=== PATIENT | male | born 1995 | race Caucasian/White ===

== ENCOUNTER 2017-05-18 12:05 | Emergency (ER) | payer OTHER ==
[~2017-05-18] VITALS: Ht 162.6 cm; Wt 76.7 kg
[2017-05-18 12:34] VITALS: BP 146/84
[2017-05-18 13:40] LABS: BASO % 0 % (0-3); EOS # 0.2 x10^3/uL (0.0-0.7); EOS % 2 % (0-3); HEMATOCRIT 44.4 % (39.0-53.0); HEMOGLOBIN 14.8 g/dL (13.0-17.5); LYMPH # 1.7 x10^3/uL (1.0-4.8); LYMPH % 14 % (24-48); MEAN CORPUSCULAR HEMOGLOBIN 29 pg (25-35); MEAN CORPUSCULAR HGB CONC 33 g/dL (31-37); MEAN CORPUSCULAR VOLUME 87 fL (79-100); MONO # 1.1 x10^3/uL (0.0-1.1); MONO % 9 % (0-9); NEUT # 8.8 x10^3uL (1.8-7.7); NEUT % 75 % (31-73); PLATELET COUNT 244 x10^3/uL (140-400); RED BLOOD COUNT 5.09 x10^6/uL (4.30-5.70); RED CELL DISTRIBUTION WIDTH 13.5 % (11.5-14.5); WHITE BLOOD COUNT 11.8 x10^3/uL (4.0-11.0)
[2017-05-18 13:49] LABS: ALBUMIN 3.9 g/dL (3.4-5.0); ALBUMIN/GLOBULIN RATIO 1.1 (1.0-1.7); CALCIUM 9.4 mg/dL (8.5-10.1); CREATININE 0.9 mg/dL (0.7-1.3); GFR 107.6; POTASSIUM 3.9 mmol/L (3.5-5.1); TOTAL BILIRUBIN 0.8 mg/dL (0.2-1.0); TOTAL PROTEIN 7.5 g/dL (6.4-8.2)
--- NOTE | 2017-05-18 13:49 | RAD ---
Exam performed: X-ray abdomen KUB. Clinical Indication: Rectal pain since Wednesday, no known injury Date of Service: 05/18/17 Comparison: None available Supine radiograph of the abdomen and pelvis reveals no evidence of ileus or obstruction. Definite pathologic calcification or organomegaly is not identified. No foreign body. The visualized osseous structures appear unremarkable. Impression: 1. Negative exam
--- NOTE | 2017-05-18 14:06 | PHYS DOC ---
Past History Past Medical History: No Pertinent History Past Surgical History: No Surgical History Alcohol Use: Occasionally Drug Use: Marijuana Adult General Chief Complaint Chief Complaint: RECTAL BLEED HPI HPI Patient is a 21 year old M who presents with rectal pain. Edwin states that while straining to have a bowel movement approximately 5 days ago he developed rectal pain. Since that time he has had dull intermittent rectal pain that is worse with bowel movements. He continues to have bowel movements daily that are hard and painful to pass but seemed to be of normal volume. He denies blood or melena. He is eating normally without nausea. His pain does not radiate. She has no other associated signs or symptoms. She has no other alleviating or exacerbating factors. Review of Systems Review of Systems Constitutional: Denies fever or chills [] Eyes: Denies change in visual acuity, redness, or eye pain [] HENT: Denies nasal congestion or sore throat [] Respiratory: Denies cough or shortness of breath [] Cardiovascular: No additional information not addressed in HPI [] GI: Negative except history of present illness : Denies dysuria or hematuria [] Musculoskeletal: Denies back pain or joint pain [] Integument: Denies rash or skin lesions [] Neurologic: Denies headache, focal weakness or sensory changes [] Endocrine: Denies polyuria or polydipsia [] Family History Family History Noncontributory Current Medications Current Medications Medications reviewed Allergies Allergies Reviewed Physical Exam Physical Exam Constitutional: Well developed, well nourished, no acute distress, non-toxic appearance. [] HENT: Normocephalic, atraumatic, bilateral external ears normal, oropharynx moist, no oral exudates, nose normal. [] Eyes: PERRLA, EOMI, conjunctiva normal, no discharge. [] Neck: Normal range of motion, no tenderness, supple, no stridor. [] Cardiovascular:Heart rate regular rhythm, no murmur [] Lungs & Thorax: Bilateral breath sounds clear to auscultation [] Abdomen: Bowel sounds normal, soft, no tenderness, no masses, no pulsatile masses. [] Rectal exam revealed no abnormalities Skin: Warm, dry, no erythema, no rash. [] Back: No tenderness, no CVA tenderness. [] Extremities: No tenderness, no cyanosis, no clubbing, ROM intact, no edema. [] Neurologic: Alert and oriented X 3, normal motor function, normal sensory function, no focal deficits noted. [] Psychologic: Affect normal, judgement normal, mood normal. [] Current Patient Data Vital Signs Vital Signs Date Time Temp Pulse Resp B/P (MAP) Pulse Ox O2 Delivery O2 Flow Rate FiO2 05/18/17 12:34 98.7 20 20 98 Room Air Lab Results Laboratory Tests Test 05/18/17 13:26 White Blood Count 11.8 x10^3/uL (4.0-11.0) H Red Blood Count 5.09 x10^6/uL (4.30-5.70) Hemoglobin 14.8 g/dL (13.0-17.5) Hematocrit 44.4 % (39.0-53.0) Mean Corpuscular Volume 87 fL (79-100) Mean Corpuscular Hemoglobin 29 pg (25-35) Mean Corpuscular Hemoglobin Concent 33 g/dL (31-37) Red Cell Distribution Width 13.5 % (11.5-14.5) Platelet Count 244 x10^3/uL (140-400) Neutrophils (%) (Auto) 75 % (31-73) H Lymphocytes (%) (Auto) 14 % (24-48) L Monocytes (%) (Auto) 9 % (0-9) Eosinophils (%) (Auto) 2 % (0-3) Basophils (%) (Auto) 0 % (0-3) Neutrophils # (Auto) 8.8 x10^3uL (1.8-7.7) H Lymphocytes # (Auto) 1.7 x10^3/uL (1.0-4.8) Monocytes # (Auto) 1.1 x10^3/uL (0.0-1.1) Eosinophils # (Auto) 0.2 x10^3/uL (0.0-0.7) Basophils # (Auto) 0.0 x10^3/uL (0.0-0.2) Sodium Level 138 mmol/L (136-145) Potassium Level 3.9 mmol/L (3.5-5.1) Chloride Level 102 mmol/L (98-107) Carbon Dioxide Level 31 mmol/L (21-32) Anion Gap 5 (6-14) L Blood Urea Nitrogen 7 mg/dL (8-26) L Creatinine 0.9 mg/dL (0.7-1.3) Estimated GFR (Cockcroft-Gault) 107.6 BUN/Creatinine Ratio 8 (6-20) Glucose Level 90 mg/dL (70-99) Calcium Level 9.4 mg/dL (8.5-10.1) Total Bilirubin 0.8 mg/dL (0.2-1.0) Aspartate Amino Transferase (AST) 11 U/L (15-37) L Alanine Aminotransferase (ALT) 17 U/L (16-63) Alkaline Phosphatase 83 U/L (46-116) Total Protein 7.5 g/dL (6.4-8.2) Albumin 3.9 g/dL (3.4-5.0) Albumin/Globulin Ratio 1.1 (1.0-1.7) Radiology/Procedures Radiology/Procedures KUB Impressions: No acute disease Course & Med Decision Making Course & Med Decision Making Pertinent Labs and Imaging studies reviewed. (See chart for details) Edwin symptoms are most consistent with constipation Dragon Disclaimer Dragon Disclaimer This chart was dictated in whole or in part using Voice Recognition software in a busy, high-work load, and often noisy Emergency Department environment. It may contain unintended and wholly unrecognized errors or omissions. Departure Departure: Impression: Primary Impression: Rectal pain Additional Impression: Constipation Disposition: 01 HOME, SELF-CARE Condition: STABLE Referrals: RC BARAJAS DO (PCP) Patient Instructions: Constipation, Adult Additional Instructions: Edwin was seen in the emergency department for rectal pain. No emergency medical condition was found on history or physical exam. He did have normal labs and imaging. His symptoms are most consistent with constipation. He was advised to discontinue his pain medication, drink plenty of fluids, and observed a soft diet until his symptoms improve. The soft diet should not be observed longer than 3-5 days, after which if he still has symptoms he should be reevaluated. He was advised to follow-up with his primary care doctor in the next 3-5 days to ensure continuing improvement. He was also advised to return to the emergency room if he develops now worsening symptoms Problem Qualifiers Additional Impression: Constipation Constipation type: unspecified constipation type Qualified Codes: K59.00 - Constipation, unspecified OLGA LAZARO MD May 18, 2017 14:06
[2017-05-18 14:22] LABS: BILIRUBIN,URINE NEG (NEG); CLARITY,URINE CLEAR; COLOR,URINE YELLOW; GLUCOSE,URINE NEG (NEG)
[2017-05-18 14:23] LABS: BACTERIA,URINE 0 /HPF (0-FEW); NITRITE,URINE NEG (NEG); RBC,URINE 0 /HPF (0-2); UROBILINOGEN,URINE 0.2 mg/dL (0.2 mg/dL); WBC,URINE 0 /HPF (0-4)
== END 2017-05-18 14:50 | disposition home or self-care (01) ==
LOC: ER 12:05
DX: K62.89 Other specified diseases of anus and rectum (principal); K59.00 Constipation, unspecified
CPT/HCPCS: 36415; 74000; 80053; 81001; 85025; 99285

== ENCOUNTER 2017-11-23 15:23 | Emergency (ER) | payer OTHER ==
[~2017-11-23] VITALS: Ht 162.6 cm; Wt 74.4 kg
[2017-11-23 15:55] LABS: BASO % 0 % (0-3); EOS % 0 % (0-3); HEMATOCRIT 47.4 % (39.0-53.0); HEMOGLOBIN 16.3 g/dL (13.0-17.5); LYMPH # 1.3 x10^3/uL (1.0-4.8); LYMPH % 11 % (24-48); MEAN CORPUSCULAR HEMOGLOBIN 30 pg (25-35); MEAN CORPUSCULAR HGB CONC 34 g/dL (31-37); MEAN CORPUSCULAR VOLUME 86 fL (79-100); MONO # 0.7 x10^3/uL (0.0-1.1); MONO % 6 % (0-9); NEUT # 9.7 x10^3uL (1.8-7.7); NEUT % 83 % (31-73); PLATELET COUNT 300 x10^3/uL (140-400); RED BLOOD COUNT 5.49 x10^6/uL (4.30-5.70); RED CELL DISTRIBUTION WIDTH 13.8 % (11.5-14.5); WHITE BLOOD COUNT 11.7 x10^3/uL (4.0-11.0)
[2017-11-23 16:07] LABS: ACETAMIN < 2.0 mcg/mL (10-30); ETHANOL < 10 mg/dL (0-10); SALIC 3.4 mg/dL (2.8-20.0)
[2017-11-23 16:08] LABS: ALBUMIN 4.6 g/dL (3.4-5.0); CALCIUM 9.6 mg/dL (8.5-10.1); CREATININE 0.8 mg/dL (0.7-1.3); DIRECT BILIRUBIN 0.1 mg/dL (0.0-0.2); GFR 123.2; POTASSIUM 3.7 mmol/L (3.5-5.1); TOTAL BILIRUBIN 0.4 mg/dL (0.2-1.0); TOTAL PROTEIN 8.1 g/dL (6.4-8.2)
[2017-11-23 17:02] LABS: AMPHETAMINE/METHAMPHETAMINE NEG (NEG); BARBITURATES NEG (NEG); BENZODIAZEPINES NEG (NEG); CANNABINOIDS POS (NEG); COCAINE NEG (NEG); METHADONE NEG (NEG); OPIATES NEG (NEG); PHENCYCLIDINE NEG (NEG)
[2017-11-23 17:11] LABS: BILIRUBIN,URINE NEG (NEG); CLARITY,URINE CLEAR; COLOR,URINE YELLOW; GLUCOSE,URINE NEG (NEG)
[2017-11-23 17:12] LABS: BACTERIA,URINE 0 /HPF (0-FEW); NITRITE,URINE NEG (NEG); SQUAMOUS EPITHELIAL CELL,UR OCC /LPF; UROBILINOGEN,URINE 0.2 mg/dL (0.2 mg/dL); WBC,URINE OCC /HPF (0-4)
--- NOTE | 2017-11-23 17:27 | PHYS DOC ---
Past History Past Medical History: No Pertinent History, Depression Past Surgical History: No Surgical History Alcohol Use: None Drug Use: None Adult General Chief Complaint Chief Complaint: suicidal ideation HPI HPI 21-year-old male patient brought in by his father because of suicidal ideation. Patient states he has had suicidal ideation and attempt or mental hospitalization or seeking medical attention since he was 19 but his suicidal ideation worse for the last 1 week because he feels he is not the person he should to be. Patient states he doesn't have a special plan but thinking about jumping in front of a car or jumping from a bridge or cutting his wrist. Patient states he is hearing voices that telling him to harm himself. Patient denies homicidal ideation. Patient denies pain or having medical problem. Patient states he used to take marijuana but doesn't take any more. Patient admitted to smoke cigarettes. Patient denies using drugs. Review of Systems Review of Systems Constitutional: Denies fever or chills [] Eyes: Denies change in visual acuity, redness, or eye pain [] HENT: Denies nasal congestion or sore throat [] Respiratory: Denies cough or shortness of breath [] Cardiovascular: No additional information not addressed in HPI [] GI: Denies abdominal pain, nausea, vomiting, bloody stools or diarrhea [] : Denies dysuria or hematuria [] Musculoskeletal: Denies back pain or joint pain [] Integument: Denies rash or skin lesions [] Neurologic: Denies headache, focal weakness or sensory changes [] Endocrine: Denies polyuria or polydipsia [] All other systems were reviewed and found to be within normal limits, except as documented in this note. Family History Family History Non-contributory Current Medications Current Medications See Nursing for home meds Allergies Allergies Allergies Coded Allergies Type Severity Reaction Last Updated Verified No Known Drug Allergies 11/23/17 No Physical Exam Physical Exam Constitutional: Well developed, well nourished, mild distress, non-toxic appearance. [] HENT: Normocephalic, atraumatic] Eyes: PERRLA, EOMI, conjunctiva normal, no discharge. [] Neck: Normal range of motion, no tenderness, supple, no stridor. [] Cardiovascular:Heart rate regular rhythm, no murmur [] Lungs & Thorax: Bilateral breath sounds clear to auscultation [] Abdomen: Bowel sounds normal, soft, no tenderness, no masses, no pulsatile masses. [] Skin: Warm, dry, no erythema, no rash. [] Back: No tenderness, no CVA tenderness. [] Extremities: No tenderness, no cyanosis, no clubbing, ROM intact, no edema. [] Neurologic: Alert and oriented X 3, normal motor function, normal sensory function, no focal deficits noted. [] Psychologic: Avoid of eye contact, judgement normal, suicidal ideation] Current Patient Data Vital Signs Vital Signs Date Time Temp Pulse Resp B/P (MAP) Pulse Ox O2 Delivery O2 Flow Rate FiO2 11/23/17 15:30 97.7 58 24 98 Room Air Lab Results Laboratory Tests Test 11/23/17 15:37 11/23/17 16:30 White Blood Count 11.7 x10^3/uL (4.0-11.0) H Red Blood Count 5.49 x10^6/uL (4.30-5.70) Hemoglobin 16.3 g/dL (13.0-17.5) Hematocrit 47.4 % (39.0-53.0) Mean Corpuscular Volume 86 fL (79-100) Mean Corpuscular Hemoglobin 30 pg (25-35) Mean Corpuscular Hemoglobin Concent 34 g/dL (31-37) Red Cell Distribution Width 13.8 % (11.5-14.5) Platelet Count 300 x10^3/uL (140-400) Neutrophils (%) (Auto) 83 % (31-73) H Lymphocytes (%) (Auto) 11 % (24-48) L Monocytes (%) (Auto) 6 % (0-9) Eosinophils (%) (Auto) 0 % (0-3) Basophils (%) (Auto) 0 % (0-3) Neutrophils # (Auto) 9.7 x10^3uL (1.8-7.7) H Lymphocytes # (Auto) 1.3 x10^3/uL (1.0-4.8) Monocytes # (Auto) 0.7 x10^3/uL (0.0-1.1) Eosinophils # (Auto) 0.0 x10^3/uL (0.0-0.7) Basophils # (Auto) 0.0 x10^3/uL (0.0-0.2) Sodium Level 143 mmol/L (136-145) Potassium Level 3.7 mmol/L (3.5-5.1) Chloride Level 103 mmol/L (98-107) Carbon Dioxide Level 29 mmol/L (21-32) Anion Gap 11 (6-14) Blood Urea Nitrogen 12 mg/dL (8-26) Creatinine 0.8 mg/dL (0.7-1.3) Estimated GFR (Cockcroft-Gault) 123.2 Glucose Level 97 mg/dL (70-99) Calcium Level 9.6 mg/dL (8.5-10.1) Total Bilirubin 0.4 mg/dL (0.2-1.0) Direct Bilirubin 0.1 mg/dL (0.0-0.2) Aspartate Amino Transferase (AST) 14 U/L (15-37) L Alanine Aminotransferase (ALT) 21 U/L (16-63) Alkaline Phosphatase 76 U/L (46-116) Total Protein 8.1 g/dL (6.4-8.2) Albumin 4.6 g/dL (3.4-5.0) Salicylates Level 3.4 mg/dL (2.8-20.0) Salicylate Last Dose Date Unknown Salicylate Last Dose Time Unknown Acetaminophen Level < 2.0 mcg/mL (10-30) L Acetaminophen Last Dose Date Unknown Acetaminophen Last Dose Time Unknown Ethyl Alcohol Level < 10 mg/dL (0-10) Urine Opiates Screen Neg (NEG) Urine Methadone Screen Neg (NEG) Urine Barbiturates Neg (NEG) Urine Phencyclidine Screen Neg (NEG) Urine Amphetamine/Methamphetamine Neg (NEG) Urine Benzodiazepines Screen Neg (NEG) Urine Cocaine Screen Neg (NEG) Urine Cannabinoids Screen Pos (NEG) Urine Ethyl Alcohol Neg (NEG) EKG EKG [] Radiology/Procedures Radiology/Procedures [] Course & Med Decision Making Course & Med Decision Making Pertinent Labs reviewed. (See chart for details) See Dr. Thomas note for earlier details. Evaluation of patient in ER showed 21-year-old female patient suicidal ideation. Patient had unremarkable labs and was medically cleared. Tele psych was informed for evaluation of the patient. Patient care transferred to Dr. Lares at 1800. Dr. Mcqueen- recommends in pt. admission for depression. . Father phone is [phone]. After discussion with pt and father they agree to evaluation at [facility]. Pt. transfer to [facility] for further evaluation. Impression: 1. Depression 2. Suicide Ideation Dragon Disclaimer Dragon Disclaimer This electronic medical record was generated, in whole or in part, using a voice recognition dictation system. Departure Departure: Impression: Primary Impression: Suicidal ideation Referrals: RC BARAJAS DO (PCP) DAVIS THOMAS MD Nov 23, 2017 17:27 HOWARD LARES MD Nov 23, 2017 18:39
[2017-11-23 19:12] LABS: SALIC 3.1 mg/dL (2.8-20.0)
[2017-11-23 19:16] LABS: ACETAMIN < 2.0 mcg/mL (10-30)
[2017-11-23 21:10] VITALS: BP 105/64
== END 2017-11-23 21:15 | disposition short-term general hospital (02) ==
LOC: ER 15:23
DX: R45.851 Suicidal ideations (principal); F32.9 Major depressive disorder, single episode, unspecified; F17.210 Nicotine dependence, cigarettes, uncomplicated
CPT/HCPCS: 36415; 80048; 80076; 80307; 81001; 85025; 99285; G0480; G0479

== ENCOUNTER 2019-03-26 22:09 | Emergency (ER) | payer SELFPAY ==
[~2019-03-26] VITALS: Ht 162.6 cm; Wt 74.4 kg
[2019-03-26 22:15] VITALS: BP 105/64
[2019-03-26] MEDS ORDERED: HYDR-3165 PO (22:53)
--- NOTE | 2019-03-26 22:53 | PHYS DOC ---
Past History Past Medical History: No Pertinent History, Depression, Other Past Surgical History: No Surgical History Alcohol Use: Occasionally Additional Alcohol Information: states he drinks weekly Drug Use: Marijuana Adult General Chief Complaint Chief Complaint: ANKLE PROBLEM HPI HPI 23-year-old male presents with right ankle pain. The patient was walking downhill when his foot slipped and rolled medially. The patient fell to the ground. He had pain in the right ankle. He also heard "crackles and pops". He went to stand up and found that he could not stand on that leg because it was too painful. He waited a few minutes and it was still too difficult to bear weight. Ankle started to swell and he decided he should get it checked out. He denies any other injuries. He has a history of weak ligaments in this ankle as a teenager. Review of Systems Review of Systems Constitutional: Denies fever or chills [] Eyes: Denies change in visual acuity, redness, or eye pain [] HENT: Denies nasal congestion or sore throat [] Respiratory: Denies cough or shortness of breath [] Cardiovascular: No additional information not addressed in HPI [] GI: Denies abdominal pain, nausea, vomiting, bloody stools or diarrhea [] : Denies dysuria or hematuria [] Musculoskeletal: Right ankle pain[] Integument: Denies rash or skin lesions [] Neurologic: Denies headache, focal weakness or sensory changes [] Endocrine: Denies polyuria or polydipsia [] All other systems were reviewed and found to be within normal limits, except as documented in this note. Allergies Allergies Allergies Coded Allergies Type Severity Reaction Last Updated Verified No Known Drug Allergies 03/26/19 No Physical Exam Physical Exam Constitutional: Well developed, well nourished, no acute distress, non-toxic appearance. [] HENT: Normocephalic, atraumatic, bilateral external ears normal, oropharynx moist, no oral exudates, nose normal. [] Eyes: PERRLA, EOMI, conjunctiva normal, no discharge. [] Neck: Normal range of motion, no tenderness, supple, no stridor. [] Cardiovascular:Heart rate regular rhythm, no murmur [] Lungs & Thorax: Bilateral breath sounds clear to auscultation [] Abdomen: Bowel sounds normal, soft, no tenderness, no masses, no pulsatile masses. [] Skin: Warm, dry, no erythema, no rash. [] Back: No tenderness, no CVA tenderness. [] Extremities: Right lateral ankle tenderness, moderate swelling, ecchymosis, no obvious deformity.[] Neurologic: Alert and oriented X 3, normal motor function, normal sensory function, no focal deficits noted. [] Psychologic: Affect normal, judgement normal, mood normal. [] Current Patient Data Vital Signs Vital Signs Date Time Temp Pulse Resp B/P (MAP) Pulse Ox O2 Delivery O2 Flow Rate FiO2 03/26/19 22:15 99.2 124 20 97 Room Air EKG EKG [] Radiology/Procedures Radiology/Procedures [] Impressions: Preliminary interpretation right ankle: Distal fibular fracture minimal displacement. Course & Med Decision Making Course & Med Decision Making Pertinent Labs and Imaging studies reviewed. (See chart for details) The patient does have a distal fibula fracture. We will place him in a sugar tong splint and recommended he follow up with orthopedics. He is stable for discharge at this time. [] Dragon Disclaimer Dragon Disclaimer This electronic medical record was generated, in whole or in part, using a voice recognition dictation system. Departure Departure: Impression: Primary Impression: Right fibular fracture Disposition: HOME, SELF-CARE Condition: STABLE Referrals: PCP,BE (PCP) Patient Instructions: Fibular Fracture, Ankle, Adult, Treated with or without Immobilization Additional Instructions: Please follow up with [facility]. You can call to make an appointment at [phone]. Scripts Hydrocodone Bit/Acetaminophen (NORCO 5-325 TABLET) 1 Each Tablet 1 TAB PO PRN Q6HRS PRN for PAIN, #14 TAB 0 Refills Prov: LEAH LE DO 03/26/19 Problem Qualifiers Primary Impression: Right fibular fracture Encounter type: initial encounter Fibula location: distal Fracture type: closed Fracture morphology: other fracture Qualified Codes: S82.831A - Other fracture of upper and lower end of right fibula, initial encounter for closed fracture LEAH LE DO Mar 26, 2019 22:53
[2019-03-26] MEDS ORDERED: HYDROcodone/APAP 5/325MG 1 TAB TABLET PO ONE (23:15)
--- NOTE | 2019-03-27 08:10 | RAD ---
ANKLE RIGHT 3V History: Fall, right ankle pain Comparison: None. Findings: 3 views of the right ankle are submitted. There is an oblique minimally displaced fracture of the distal fibula, probably extends near the region of syndesmosis as suggested on the lateral view. There is soft tissue swelling. Impression: 1. There is a distal fibula fracture. Electronically signed by: Aguila Chan MD (03/27/2019 8:07 AM) [id number]
== END 2019-03-26 23:10 | disposition home or self-care (01) ==
LOC: ER 22:09
DX: S82.831A Other fracture of upper and lower end of right fibula, initial encounter for closed fracture (principal); W18.39XA Other fall on same level, initial encounter; Y93.01 Activity, walking, marching and hiking; Y92.828 Other wilderness area as the place of occurrence of the external cause; Y99.8 Other external cause status
CPT/HCPCS: 29515; 73610; 99284

== ENCOUNTER 2019-12-26 01:08 | Emergency (ER) | payer SELFPAY ==
[~2019-12-26] VITALS: Ht 162.6 cm; Wt 86.3 kg
[~2019-12-26 01:08] MED LIST: HYDR-3165 PO
[2019-12-26] MEDS ORDERED: DIAZ5TAB PO (02:07)
--- NOTE | 2019-12-26 02:08 | PHYS DOC ---
Past History Past Medical History: No Pertinent History, Depression, Other Past Surgical History: No Surgical History Alcohol Use: Occasionally Drug Use: Marijuana Adult General Chief Complaint Chief Complaint: ANXIETY/PANIC ATTACK HPI HPI Patient is an otherwise healthy 24-year-old male who states he has been very nervous upset anxious and excited about the virus. He developed some difficulty breathing at home. He felt like he had the virus. He denies any fever chills or sweats. He has not had any cough or other upper respiratory type symptoms he has not traveled nor had anybody sick around him. [] Review of Systems Review of Systems Constitutional: Denies fever or chills [] Eyes: Denies change in visual acuity, redness, or eye pain [] HENT: Denies nasal congestion or sore throat [] Respiratory: Denies cough or shortness of breath [] Cardiovascular: No additional information not addressed in HPI [] GI: Denies abdominal pain, nausea, vomiting, bloody stools or diarrhea [] : Denies dysuria or hematuria [] Musculoskeletal: Denies back pain or joint pain [] Integument: Denies rash or skin lesions [] Neurologic: Denies headache, focal weakness or sensory changes [] Endocrine: Denies polyuria or polydipsia [] All other systems were reviewed and found to be within normal limits, except as documented in this note. Allergies Allergies Allergies Coded Allergies Type Severity Reaction Last Updated Verified No Known Drug Allergies 03/26/19 No Physical Exam Physical Exam Constitutional: Well developed, well nourished, no acute distress, non-toxic appearance. [] HENT: Normocephalic, atraumatic, bilateral external ears normal, oropharynx moist, no oral exudates, nose normal. [] Eyes: PERRLA, EOMI, conjunctiva normal, no discharge. [] Neck: Normal range of motion, no tenderness, supple, no stridor. [] Cardiovascular:Heart rate regular rhythm, no murmur [] Lungs & Thorax: Bilateral breath sounds clear to auscultation [] Abdomen: Bowel sounds normal, soft, no tenderness, no masses, no pulsatile masses. [] Skin: Warm, dry, no erythema, no rash. [] Back: No tenderness, no CVA tenderness. [] Extremities: No tenderness, no cyanosis, no clubbing, ROM intact, no edema. [] Neurologic: Alert and oriented X 3, normal motor function, normal sensory function, no focal deficits noted. [] Psychologic: Extremely anxious, tearful l. [] EKG EKG [] Radiology/Procedures Radiology/Procedures [] Course & Med Decision Making Course & Med Decision Making Pertinent Labs and Imaging studies reviewed. (See chart for details) [] Dragon Disclaimer Dragon Disclaimer This electronic medical record was generated, in whole or in part, using a voice recognition dictation system. Departure Departure: Impression: Primary Impression: Panic attack as reaction to stress Disposition: 01 HOME, SELF-CARE Condition: STABLE Referrals: PCP,NO (PCP) Patient Instructions: Anxiety and Panic Attacks Scripts Diazepam (VALIUM) 5 Mg Tablet 5 MG PO TID for anxiety, #12 TAB Prov: OLY FOX DO 12/26/19 OLY FOX DO Dec 26, 2019 02:08
[2019-12-26] MEDS: diazePAM 5 MG TABLET PO ONE (02:15)
[2019-12-26 02:20] VITALS: BP 130/76
== END 2019-12-26 02:20 | disposition home or self-care (01) ==
LOC: ER 01:08
DX: F43.0 Acute stress reaction (principal); F32.9 Major depressive disorder, single episode, unspecified
CPT/HCPCS: 99283

== ENCOUNTER 2020-04-27 05:00 | Emergency (ER) | payer SELFPAY ==
[~2020-04-27] VITALS: Ht 162.6 cm; Wt 87.5 kg
[~2020-04-27 05:00] MED LIST changes: +DIAZ5TAB PO
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
--- NOTE | 2020-04-27 05:43 | RAD ---
INDICATION: Reason: Short of air, chest pain / Spl. Instructions: / History: COMPARISON: None. FINDINGS: 2 view of chest obtained. Mild hazy opacity in the retrocardiac region. Cardiac silhouette is unremarkable. No gross osseous destructive lesion. IMPRESSION: * Mild haziness in the retrocardiac region. This is a common location for atelectasis but mild infiltrate can have the same radiographic appearance. Electronically signed by: Huang Platt MD (04/27/2020 5:40 AM) [id number]
[2020-04-27 05:50] LABS: GFR 92.6; POTASSIUM 3.5 mmol/L (3.5-5.1)
[2020-04-27 05:51] LABS: BASO % 1 % (0-3); EOS # 0.7 x10^3/uL (0.0-0.7); EOS % 7 % (0-3); HEMATOCRIT 45.2 % (39.0-53.0); HEMOGLOBIN 15.5 g/dL (13.0-17.5); LYMPH # 2.7 x10^3/uL (1.0-4.8); LYMPH % 28 % (24-48); MEAN CORPUSCULAR HEMOGLOBIN 30 pg (25-35); MEAN CORPUSCULAR HGB CONC 34 g/dL (31-37); MEAN CORPUSCULAR VOLUME 86 fL (79-100); MONO # 0.9 x10^3/uL (0.0-1.1); MONO % 10 % (0-9); NEUT # 5.1 x10^3uL (1.8-7.7); NEUT % 54 % (31-73); PLATELET COUNT 317 x10^3/uL (140-400); RED BLOOD COUNT 5.25 x10^6/uL (4.30-5.70); RED CELL DISTRIBUTION WIDTH 13.8 % (11.5-14.5); WHITE BLOOD COUNT 9.4 x10^3/uL (4.0-11.0)
[2020-04-27 05:56] LABS: ALBUMIN 3.8 g/dL (3.4-5.0); ALBUMIN/GLOBULIN RATIO 1.1 (1.0-1.7); TOTAL BILIRUBIN 0.3 mg/dL (0.2-1.0); TOTAL PROTEIN 7.3 g/dL (6.4-8.2)
[2020-04-27] MEDS ORDERED: ALBU2.5V8 INH (06:14)
[2020-04-27] MEDS ORDERED: AZIT250T PO (06:14)
== END 2020-04-27 06:19 | disposition home or self-care (01) ==
LOC: ER 05:00
DX: R06.00 Dyspnea, unspecified (principal); R07.2 Precordial pain; J02.9 Acute pharyngitis, unspecified; F41.9 Anxiety disorder, unspecified; F32.9 Major depressive disorder, single episode, unspecified; F12.10 Cannabis abuse, uncomplicated
CPT/HCPCS: 36415; 71046; 80053; 84484; 85025; 99284

== ENCOUNTER 2020-05-12 01:17 | Emergency (ER) | payer OTHER ==
[~2020-05-12] VITALS: Ht 162.6 cm; Wt 85.8 kg
[~2020-05-12 01:17] MED LIST changes: +ALBU2.5V8 INH; +AZIT250T PO
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
[2020-05-12] MEDS ORDERED: IV RINGERS SOLUTION,LACTATED 1,000 ML IV SCH (01:30)
[2020-05-12] MEDS ORDERED: MVI, ADULT NO.4 WITH VIT K 10 ML, THIAMINE INJ 100 MG in IV RINGERS SOLUTION,LACTATED 1... IV ONE ×3 (01:45)
[2020-05-12] MEDS ORDERED: FOLIC ACID 1 MG TABLET PO ONE (01:45)
[2020-05-12] MEDS ORDERED: THIAMINE 200 MG/2 ML VIAL. IV ONE (01:55)
[2020-05-12] MEDS ORDERED: MVI, ADULT NO.4 WITH VIT K 10 ML VIAL IV ONE (01:55)
[2020-05-12 03:01] LABS: BASO % 0 % (0-3); EOS # 0.1 x10^3/uL (0.0-0.7); EOS % 1 % (0-3); HEMATOCRIT 47.2 % (39.0-53.0); LYMPH # 1.9 x10^3/uL (1.0-4.8); LYMPH % 22 % (24-48); MEAN CORPUSCULAR HEMOGLOBIN 29 pg (25-35); MEAN CORPUSCULAR HGB CONC 34 g/dL (31-37); MEAN CORPUSCULAR VOLUME 87 fL (79-100); MONO # 0.5 x10^3/uL (0.0-1.1); MONO % 6 % (0-9); NEUT # 6.2 x10^3uL (1.8-7.7); NEUT % 71 % (31-73); PLATELET COUNT 345 x10^3/uL (140-400); RED BLOOD COUNT 5.45 x10^6/uL (4.30-5.70); RED CELL DISTRIBUTION WIDTH 13.5 % (11.5-14.5); WHITE BLOOD COUNT 8.8 x10^3/uL (4.0-11.0)
[2020-05-12 03:19] LABS: BACTERIA,URINE 0 /HPF (0-FEW); BILIRUBIN,URINE NEG (NEG); CLARITY,URINE CLEAR; COLOR,URINE COLORLESS; GLUCOSE,URINE NEG (NEG); NITRITE,URINE NEG (NEG); RBC,URINE 0 /HPF (0-2); UROBILINOGEN,URINE 0.2 mg/dL (0.2 mg/dL); WBC,URINE 0 /HPF (0-4)
[2020-05-12 03:20] LABS: BARBITURATES NEG (NEG); BENZODIAZEPINES NEG (NEG); CANNABINOIDS NEG (NEG); COCAINE NEG (NEG); METHADONE NEG (NEG); OPIATES NEG (NEG); PHENCYCLIDINE NEG (NEG)
[2020-05-12 03:21] LABS: AMPHETAMINE/METHAMPHETAMINE NEG (NEG)
[2020-05-12 05:25] VITALS: BP 116/56
[2020-05-12 05:38] LABS: ALBUMIN 4.2 g/dL (3.4-5.0)
[2020-05-12 05:39] LABS: CALCIUM 9.2 mg/dL (8.5-10.1); CREATININE 0.7 mg/dL (0.7-1.3); DIRECT BILIRUBIN 0.1 mg/dL (0.0-0.2); GFR 139.8; MAGNESIUM 2.2 mg/dL (1.8-2.4); POTASSIUM 3.8 mmol/L (3.5-5.1); TOTAL BILIRUBIN 0.2 mg/dL (0.2-1.0)
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
== END 2020-05-12 05:30 | disposition home or self-care (01) ==
LOC: ER 01:17
DX: S70.11XA Contusion of right thigh, initial encounter (principal); M79.604 Pain in right leg; M25.551 Pain in right hip; F10.229 Alcohol dependence with intoxication, unspecified; Y90.8 Blood alcohol level of 240 mg/100 ml or more; V47.5XXA Car driver injured in collision with fixed or stationary object in traffic accident, initial encounter; Y93.89 Activity, other specified; Y92.89 Other specified places as the place of occurrence of the external cause; Y99.8 Other external cause status
CPT/HCPCS: 36415; 71045; 72170; 73552; 80048; 80076; 80307; 81001; 83690; 83735; 85025; 85610; 85730; 96365; 99285; G0480; J7120

== ENCOUNTER 2020-06-01 02:06 | Emergency (ER) | payer SELFPAY ==
[~2020-06-01] VITALS: Ht 162.6 cm; Wt 86.8 kg
[2020-06-01 04:00] VITALS: BP 131/78
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
[2020-06-01] MEDS ORDERED: GLYCERIN ADULT 1 SUPP.RECT. PR ONE (04:30)
[2020-06-01] MEDS ORDERED: MAGNESIUM CITRATE 296 ML SOLUTION. PO ONE (04:30)
[2020-06-01] MEDS ORDERED: PEG4000S8 PO (04:33)
[2020-06-01] MEDS ORDERED: DIBU28OI RC ×2 (04:33)
[2020-06-01] MEDS ORDERED: HYDR-1179 PO (04:40)
== END 2020-06-01 04:45 | disposition home or self-care (01) ==
LOC: ER 02:06
DX: K60.2 Anal fissure, unspecified (principal); K59.00 Constipation, unspecified; F12.10 Cannabis abuse, uncomplicated
CPT/HCPCS: 99283

== ENCOUNTER 2021-01-11 11:24 | Emergency (ER) | payer SELFPAY ==
[~2021-01-11] VITALS: Ht 162.6 cm; Wt 81.8 kg
[~2021-01-11 11:24] MED LIST changes: +DIBU28OI RC; +HYDR-1179 PO; +PEG4000S8 PO
[2021-01-11 11:38] VITALS: BP 135/88
--- NOTE | 2021-01-11 12:29 | PHYS DOC ---
Past History Past Medical History: Asthma, Constipation, Other Additional Past Medical Histor: ANAL FISSURES Past Surgical History: No Surgical History Alcohol Use: Rarely Drug Use: Marijuana General Adult EDM: Chief Complaint: RECTAL BLEED HPI: HPI: Patient is a 25 year old male who presents with abrasion to his intergluteal cleft. Patient states that he noticed bleeding when he wiped. Denies bleeding from his rectum. Denies pain. Denies trauma. Patient does report having a history of anal fissures. Review of Systems: Review of Systems: Constitutional: Denies fever or chills Eyes: Denies change in visual acuity HENT: Denies nasal congestion or sore throat Respiratory: Denies cough or shortness of breath Cardiovascular: Denies chest pain or edema GI: Denies abdominal pain, nausea, vomiting, bloody stools or diarrhea : Denies dysuria Musculoskeletal: Denies back pain or joint pain Integument: Reports abrasion above his rectum Neurologic: Denies headache, focal weakness or sensory changes Endocrine: Denies polyuria or polydipsia Lymphatic: Denies swollen glands Psychiatric: Denies depression or anxiety Allergies: Allergies: Allergies Coded Allergies Type Severity Reaction Last Updated Verified No Known Drug Allergies 06/01/20 No Physical Exam: PE: Constitutional: Well developed, well nourished, no acute distress, non-toxic appearance. [] HENT: Normocephalic, atraumatic, bilateral external ears normal, oropharynx moist, no oral exudates, nose normal. [] Eyes: PERRLA, EOMI, conjunctiva normal, no discharge. [] Neck: Normal range of motion, no tenderness, supple, no stridor. [] Cardiovascular:Heart rate regular rhythm, no murmur [] Lungs & Thorax: Bilateral breath sounds clear to auscultation [] Abdomen: Bowel sounds normal, soft, no tenderness, no masses, no pulsatile masses. [] Skin: open abrasion, above rectum, intergleteal cleft, no tenderness Back: No tenderness, no CVA tenderness. [] Extremities: No tenderness, no cyanosis, no clubbing, ROM intact, no edema. [] Neurologic: Alert and oriented X 3, normal motor function, normal sensory function, no focal deficits noted. [] Psychologic: Affect normal, judgement normal, mood normal. [] Current Patient Data: Vital Signs: Vital Signs Date Time Temp Pulse Resp B/P (MAP) Pulse Ox O2 Delivery O2 Flow Rate FiO2 01/11/21 11:38 107 22 135/88 (104) 98 EKG: EKG: [] Radiology/Procedures: Radiology/Procedures: [] Heart Score: C/O Chest Pain: No Risk Factors: Risk Factors: DM, Current or recent (<one month) smoker, HTN, HLP, family history of CAD, obesity. Risk Scores: Score 0 - 3: 2.5% MACE over next 6 weeks - Discharge Home Score 4 - 6: 20.3% MACE over next 6 weeks - Admit for Clinical Observation Score 7 - 10: 72.7% MACE over next 6 weeks - Early Invasive Strategies Course & Med Decision Making: Course & Med Decision Making Pertinent Labs and Imaging studies reviewed. (See chart for details) [] 25-year-old male with abrasion to his inner gluteal cleft. Bleeding is controlled. Patient most likely open to the abrasion when wiping. Patient is denying pain or trauma. No signs of infection. Instructed patient to keep the area clean and dry. Patient can use Neosporin to abrasion. Patient instructed to return to emergency room with rectal bleeding increase playing, signs of abscess. Patient is hemodynamically stable. Patient states that he understands and is okay with discharge plan. Elizabeth Disclaimer: Elizabeth Disclaimer: This electronic medical record was generated, in whole or in part, using a voice recognition dictation system. Departure Departure: Impression: Primary Impression: Abrasion Disposition: HOME / SELF CARE / HOMELESS Condition: STABLE Referrals: PCP,NO (PCP) Patient Instructions: Abrasion, [id number] Additional Instructions: You are seen in the emergency room for an abrasion to your intergluteal cleft. Keep the area clean and dry. You can use Neosporin to the area to promote healing. Please return the emergency room with worsening symptoms or concerns. EMERGENCY DEPARTMENT GENERAL DISCHARGE INSTRUCTIONS Thank you for coming to [facility] (ED) today and trusting us with you care. We trust that you had a positivie experience in our Emergency Department. If you wish to speak to the department management, you may call the director at [phone]. YOUR FOLLOW UP INSTRUCTIONS ARE FOLLOWS: 1. Do you have a private Doctor? If you do not have a private doctor, please ask for a resource list of physicians or clinics that may be able to assist you with follow up care. 2. The Emergency Physician has interpreted your x-rays. The X-Ray specialist will also review them. If there is a change in the findings, you will be notified in 48 hours when at all possible. 3. A lab test or culture has been done, your results will be reviewed and you will be notified if you need a change in treatment. ADDITIONAL INSTRUCTIONS AND INFORMATION: 1. Your care today has been supervised by a physician who is specially trained in emergency care. Many problems require more than one evaluation for a complete diagnosis and treatment. We recommend that you schedule your follow up appointment as recommended to ensure complete treatment of you illness or injury. If you are unable to obtain follow up care and continue to have a problem, or if your condition worsens, we recommend that you return to the ED. 2. We are not able to safely determine your condition over the phone nor are we able to give sound medical advice over the phone. For these safety reasons, if you call for medical advice we will ask you to come to the ED for further evaluation. 3. If you have any questions regarding these discharge instructions please call the ED at [phone]. SAFETY INFORMATION: In the interest of safety, wellness, and injury prevention; we encourage you to wear your sealbelt, if you smoke; quite smoking, and we encourage family to use a protective helmet for bicycling and other sporting events that present an increased risk for head injury. IF YOUR SYMPTOMS WORSEN OR NEW SYMPTOMS DEVELOP, OR YOU HAVE CONCERNS ABOUT YOUR CONDITION; OR IF YOUR CONDITION WORSENS WHILE YOU ARE WAITING FOR YOUR FOLLOW UP APPOINTMENT; EITHER CONTACT YOUR PRIMARY CARE DOCTOR, THE PHYSICIAN WHOSE NAME AND NUMBER YOU WERE GIVEN, OR RETURN TO THE ED IMMEDIATELY. BRIANA YU APRN Jan 11, 2021 12:29
== END 2021-01-11 12:33 | disposition home or self-care (01) ==
LOC: ER 11:24
DX: S30.810A Abrasion of lower back and pelvis, initial encounter (principal); J45.909 Unspecified asthma, uncomplicated; X58.XXXA Exposure to other specified factors, initial encounter; Y93.89 Activity, other specified; Y92.89 Other specified places as the place of occurrence of the external cause; Y99.8 Other external cause status
CPT/HCPCS: 99282

== ENCOUNTER 2021-06-19 13:49 | Emergency (ER) | payer OTHER ==
[~2021-06-19] VITALS: Ht 162.6 cm; Wt 80.5 kg
[2021-06-19 14:00] VITALS: BP 133/74
[2021-06-19] MEDS ORDERED: SULF1TAB24 PO (14:23)
--- NOTE | 2021-06-19 14:23 | PHYS DOC ---
Past History Past Medical History: Asthma, Constipation, Other Additional Past Medical Histor: ANAL FISSURES Past Surgical History: Other Additional Past Surgical Histo: right fibula Alcohol Use: Rarely Drug Use: Marijuana General Adult EDM: Chief Complaint: ABSCESS HPI: HPI: 25-year-old male presents with what he thinks is a cyst at the top of his gluteal cleft. Patient states he has never had been here before. Its been getting bigger for the last several days. He was getting ready to come to the ER for evaluation when he scraped it and it started to drain. He was concerned he could get infected so he came to the emergency room. Patient denies fever or chills. No history of abscesses or MRSA. Review of Systems: Review of Systems: Constitutional: Denies fever or chills Eyes: Denies change in visual acuity HENT: Denies nasal congestion or sore throat Respiratory: Denies cough or shortness of breath Cardiovascular: Denies chest pain or edema GI: Denies abdominal pain, nausea, vomiting, bloody stools or diarrhea : Denies dysuria Musculoskeletal: Denies back pain or joint pain Integument: Mass gluteal cleft Neurologic: Denies headache, focal weakness or sensory changes Endocrine: Denies polyuria or polydipsia Lymphatic: Denies swollen glands Psychiatric: Denies depression or anxiety Allergies: Allergies: Allergies Coded Allergies Type Severity Reaction Last Updated Verified No Known Drug Allergies 06/19/21 No Physical Exam: PE: Constitutional: Well developed, well nourished, no acute distress, non-toxic appearance. [] HENT: Normocephalic, atraumatic, bilateral external ears normal, oropharynx moist, no oral exudates, nose normal. [] Eyes: PERRLA, EOMI, conjunctiva normal, no discharge. [] Neck: Normal range of motion, no tenderness, supple, no stridor. [] Cardiovascular:Heart rate regular rhythm, no murmur [] Lungs & Thorax: Bilateral breath sounds clear to auscultation [] Abdomen: Bowel sounds normal, soft, no tenderness, no masses, no pulsatile masses. [] Skin: Spontaneously draining abscess of the gluteal cleft [] Back: No tenderness, no CVA tenderness. [] Extremities: No tenderness, no cyanosis, no clubbing, ROM intact, no edema. [] Neurologic: Alert and oriented X 3, normal motor function, normal sensory function, no focal deficits noted. [] Psychologic: Affect normal, judgement normal, mood normal. [] Current Patient Data: Vital Signs: Vital Signs Date Time Temp Pulse Resp B/P (MAP) Pulse Ox O2 Delivery O2 Flow Rate FiO2 06/19/21 14:00 98.8 97 18 133/74 (93) 98 Room Air EKG: EKG: [] Radiology/Procedures: Radiology/Procedures: [] Heart Score: C/O Chest Pain: N/A Risk Factors: Risk Factors: DM, Current or recent (<one month) smoker, HTN, HLP, family history of CAD, obesity. Risk Scores: Score 0 - 3: 2.5% MACE over next 6 weeks - Discharge Home Score 4 - 6: 20.3% MACE over next 6 weeks - Admit for Clinical Observation Score 7 - 10: 72.7% MACE over next 6 weeks - Early Invasive Strategies Course & Med Decision Making: Course & Med Decision Making Pertinent Labs and Imaging studies reviewed. (See chart for details) The patient had spontaneous drainage, but it was a very small hole. I enlarged the incision and performed a full I&D. Patient tolerated the procedure well. I will discharge him on Bactrim for 7 days. He is stable for discharge at this time. [] Dragon Disclaimer: Dragon Disclaimer: This electronic medical record was generated, in whole or in part, using a voice recognition dictation system. Incision and Drainage Indication: 3 cm abscess of the gluteal cleft. Procedure: I obtained verbal consent from the patient for incision and drainage of his gluteal abscess. The area was cleansed with alcohol. No anesthesia was used. I made an incision with a #11 blade. There was further purulent material expressed. I probed the wound with a sterile Q-tip. Loculations were broken up. More material was expressed. No packing was applied. A clean dressing was applied over the wound. The patient tolerated the procedure well. Complications: None. Departure Departure: Impression: Primary Impression: Abscess, gluteal cleft Disposition: HOME / SELF CARE / HOMELESS Condition: IMPROVED Referrals: PCP,NO (PCP) Patient Instructions: Abscess, Care After, Abscess, [id number] Scripts Sulfamethoxazole/Trimethoprim (BACTRIM DS TABLET) 1 Each Tablet 1 TAB PO BID for cellulitis for 7 Days, #14 TAB 0 Refills Prov: LEAH LE DO 06/19/21 LEAH LE DO Jun 19, 2021 14:23
== END 2021-06-19 14:44 | disposition home or self-care (01) ==
LOC: ER 13:49
DX: L02.31 Cutaneous abscess of buttock (principal); J45.909 Unspecified asthma, uncomplicated; K59.00 Constipation, unspecified; F12.10 Cannabis abuse, uncomplicated
CPT/HCPCS: 10060; 99283-25